=== PATIENT | female | born 1990 | race Caucasian/White ===

== ENCOUNTER 2017-06-23 19:03 | Emergency (ER) | payer OTHER ==
[~2017-06-23 19:03] MED LIST: ALB/IPRATROPIUM/1 E2 INH; FLEXERIL PO; FLEXERIL10 M1 PO; IBUPROFEN800 MG PO; KETOPROFEN PO
== END 2017-06-23 20:26 | disposition left against medical advice (07) ==
LOC: SED 19:03
DX: Z53.21 Procedure and treatment not carried out due to patient leaving prior to being seen by health care provider (principal)